=== PATIENT | female | born 1985 | race Caucasian/White ===

== ENCOUNTER 2019-08-01 20:05 | Emergency (ER) | payer BC ==
[~2019-08-01] VITALS: Ht 175.3 cm; Wt 63.5 kg
--- NOTE | 2019-08-02 15:22 | EKG ---
[facility] [address] [facility] [place], [place] [address] Signed Sinus bradycardia Possible Left atrial enlargement Incomplete right bundle branch block Possible Right ventricular hypertrophy Abnormal ECG No previous ECGs available Confirmed by SANDEEP LARA DO ([id number]) on 08/02/2019 3:22:01 PM Electronically Signed By: SANDEEP LARA DO 08/02/19 1522 PATIENT NAME: ANGELINA LAU Electrocardiogram DATE OF : 87 PHYSICIAN: SANDEEP LARA DO REPORT #: [id number] REPORT IS CONFIDENTIAL AND NOT TO BE RELEASED WITHOUT AUTHORIZATION
== END 2019-08-01 22:18 | disposition home or self-care (01) ==
LOC: ED 20:05
DX: R00.2 Palpitations (principal)
CPT/HCPCS: 71046; 80053; 83735; 84484; 85025; 93005; 93010; 93225; 93226; 93227; 99285-25